=== PATIENT | female | born 1945 | race Caucasian/White ===

== ENCOUNTER 2018-03-27 17:59 | Inpatient (IN) | payer OTHER ==
[~2018-03-27] VITALS: Ht 152.4 cm; Wt 52.6 kg
[~2018-03-27 17:59] MED LIST: ACET-8386 PO; ASPI81CT89 PO; COL250 PO; COZ50 PO; IBUP-2213 PO; [UNRECOGNIZED DRUG - CODE] PO; [UNRECOGNIZED DRUG - CODE] PO; [UNRECOGNIZED DRUG - CODE] PO
[2018-03-27 18:05] VITALS: BP 149/90
--- NOTE | 2018-03-27 18:05 | NUR ---
PT AMBULATES TO BED 4
--- NOTE | 2018-03-27 18:32 | NUR ---
73 YO F BIB FAMILY WITH C/O H/A, TINGLING ON THE FACE, FEELING HOT ON BL FEET AT NIGHT. DENIES INJURY. DENIES N/V/D/FEVER/CHILLS AT THIS TIME. AAOX4. GSC 15. CMS INTACT. RR EVEN AND UNLABORED. LUNGS BILATERALLY CLEAR. ABD SOFT, NON-TENDER. ER MD BARRETO NOTIFIED. PT NEEDS MET. SAFETY PRECAUTIONS IN PLACE. WILL CONTINUE TO MONITOR.
--- NOTE | 2018-03-27 19:00 | NUR ---
CRITICAL CT SCAN RECEIVED FROM [facility] WITH RADIOLOGY AT THIS TIME. ER MD BARRETO NOTIFIED AND WILL SEE PT.
[2018-03-27] MEDS ORDERED: ASPIRIN 81 MG TAB.CHEW PO ONE (19:10)
[2018-03-27 19:23] LABS: BASOPHILS # (AUTO) 0.1 K/uL (0.00-0.22); BASOPHILS % (AUTO) 0.8 % (0.0-2.0); EOSINOPHILS % (AUTO) 0.4 % (0.0-4.0); HEMATOCRIT 34.2 % (36-48); HEMOGLOBIN 11.4 g/dL (12.0-16.0); LYMPHOCYTES % (AUTO) 16.5 % (20.5-51.1); MEAN CORPUSCULAR HEMOGLOBIN 29 pg (27-31); MEAN CORPUSCULAR HGB CONC 33 g/dL (33-37); MEAN CORPUSCULAR VOLUME 86.6 fL (80-94); MONOCYTES # (AUTO) 0.6 K/uL (0.8-1.0); NEUTROPHILS # (AUTO) 4.6 K/uL (1.8-7.7); NEUTROPHILS % (AUTO) 73.3 % (42.2-75.2); PLATELET COUNT (AUTO) 220 K/uL (140-450); RED BLOOD CELL COUNT(AUTO) 3.95 MIL/uL (4.20-5.40); RED CELL DISTRIBUTION WIDTH 14.9 % (11.6-13.7); WHITE BLOOD COUNT (AUTO) 6.2 K/uL (4.8-10.8)
[2018-03-27 19:39] LABS: ANION GAP 13.4 (8-16); CARBON DIOXIDE 24.4 mmol/L (21-32); CHLORIDE 109 mmol/L (98-107); CREATININE 1.2 mg/dL (0.6-1.3); GLUCOSE 110 mg/dL (74-106); POTASSIUM 3.8 mmol/L (3.5-5.1); SODIUM SERUM 143 mmol/L (136-145); UREA NITROGEN, BLOOD 35 mg/dL (7-18)
[2018-03-27 19:41] LABS: PROTHROMBIN TIME 9.9 secs (10.8-13.4)
[2018-03-27 19:45] LABS: ALBUMIN 3.1 g/dL (3.4-5.0); ASPARTATE AMINOTRANSFERASE 17 U/L (15-37); TOTAL BILIRUBIN 0.2 mg/dL (0.0-1.0)
--- NOTE | 2018-03-27 19:55 | NUR ---
pt resting comfortably in bed at this time. vss. will continue to monitor.
[2018-03-27] MEDS ORDERED: MORPHINE SULFATE 2 MG/ML SYR IVP PRN (20:20)
[2018-03-27 20:50] VITALS: BP 150/70
--- NOTE | 2018-03-27 20:50 | NUR ---
PATIENT ADMITTED TO THE UNIT FROM ER. PATIENT IS AWAKE, ALERT AND ORIENTED. KINYARWANDA-SPEAKING. AMBULATES WITH WALKER. NO SIGNS AND SYMPTOMS OF DISTRESS NOTED. NO C/O PAIN AT THIS TIME. IV SITE NOTED ON RIGHT FOREARM, SALINE LOCKED. PATIENTS SONS ARE AT BEDSIDE. PLAN OF CARE DISCUSSED WITH PATIENT, AND FAMILY. PATIENT VERBALIZED UNDERSTANDING. SAFETY PRECAUTIONS IN PLACE. WILL CONTINUE TO MONITOR
--- NOTE | 2018-03-27 20:58 | NUR ---
Patient will be admitted to care of DAMIEN Hayes. Admited to Tele. Will go to room 123A. Belongings list completed. Pt tolerated transition well.
[2018-03-27] MEDS ORDERED: CALCIUM LACTATE 650 MG PO SCH (21:00)
[2018-03-27] MEDS ORDERED: DOCUSATE SODIUM 250 MG GELCAP PO SCH (21:00)
--- NOTE | 2018-03-27 21:00 | NUR ---
PATIENT'S SON JIL WAS ABLE TO TRANSLATE TO PATIENT IN [place]. PATIENT HAS RED WALKER, WITH BELONGINGS INSIDE WALKER. PATIENT ALSO HAS UPPER AND LOWER DENTURES
--- NOTE | 2018-03-27 22:00 | NUR ---
ASSISTED PATIENT TO THE RESTROOM WITH WALKER. PATIENT STEADY. PATIENT VOIDED IN RESTROOM. ASSISTED PATIENT BACK TO BED. NO S/SX DISTRESS NOTED. NO SOB. WILL CONTINUE TO MONITOR
[2018-03-28] VITALS: BP 146/69
--- NOTE | 2018-03-28 01:30 | NUR ---
CHECKED ON PATIENT. PATIENT IS ASLEEP. NO SIGNS AND SYMPTOMS OF DISTRESS NOTED. BREATHING EVEN AND UNLABORED, WILL CONTINUE TO MONITOR
--- NOTE | 2018-03-28 03:34 | NUR ---
CHECKED ON PATIENT. PATIENT IS ASLEEP. NO SIGNS AND SYMPTOMS OF DISTRESS NOTED. BREATHING EVEN AND UNLABORED. WILL CONTINUE TO MONITOR
[2018-03-28 04:00] VITALS: BP 158/67
--- NOTE | 2018-03-28 06:00 | NUR ---
CHECKED ON PATIENT. PATIENT IS ASLEEP. NO SIGNS AND SYMPTOMS OF DISTRESS NOTED. BREATHING EVEN AND UNLABORED. WILL CONTINUE TO MONITOR.
[2018-03-28 06:24] LABS: EOSINOPHILS # (AUTO) 0.1 K/uL (0-0.4); EOSINOPHILS % (AUTO) 1.9 % (0.0-4.0); HEMATOCRIT 33.7 % (36-48); HEMOGLOBIN 11.3 g/dL (12.0-16.0); LYMPHOCYTES # (AUTO) 1.3 K/uL (2.5-16.5); LYMPHOCYTES % (AUTO) 24.9 % (20.5-51.1); MEAN CORPUSCULAR HEMOGLOBIN 29 pg (27-31); MEAN CORPUSCULAR HGB CONC 34 g/dL (33-37); MEAN CORPUSCULAR VOLUME 86.7 fL (80-94); MONOCYTES # (AUTO) 0.5 K/uL (0.8-1.0); MONOCYTES % (AUTO) 8.9 % (1.7-9.3); NEUTROPHILS # (AUTO) 3.2 K/uL (1.8-7.7); NEUTROPHILS % (AUTO) 63.3 % (42.2-75.2); PLATELET COUNT (AUTO) 210 K/uL (140-450); RED BLOOD CELL COUNT(AUTO) 3.89 MIL/uL (4.20-5.40); RED CELL DISTRIBUTION WIDTH 15.1 % (11.6-13.7); WHITE BLOOD COUNT (AUTO) 5.1 K/uL (4.8-10.8)
--- NOTE | 2018-03-28 07:05 | NUR ---
PATIENT REPORT GIVEN TO MORNING NURSE AT BEDSIDE FOR CONTINUITY OF CARE. PATIENT IS IN STABLE CONDITION.
--- NOTE | 2018-03-28 07:08 | NUR ---
RECEIVED REPORT FROM PACK PULLER RN. PATIENT IS SLEEPING IN BED, AROUSABLE BY VOICE. PATIENT DENIES HEADACHE AND TINGLING AT THIS TIME. IV SITE ON RIGHT FOREARM, PATENT AND ASYMPTOMATIC. LUNGS CTA IN ALL HIGH. HEART RHYTHM REGULAR, S1 AND S2 NOTED. ABDOMEN SOFT AND NON-DISTENDED. HEALED ABRASION NOTED ON LEFT ARM. ALL SAFETY MEASURES IN PLACE, CALL LIGHT WITHIN REACH. WILL CONTINUE TO MONITOR.
[2018-03-28 08:00] VITALS: BP 155/78
--- NOTE | 2018-03-28 08:38 | NUR ---
PATIENT HAS BEEN SCREENED AND CATEGORIZED MODERATE NUTRITION RISK. PATIENT WILL BE SEEN WITHIN 3-5 DAYS OF ADMISSION. 03/30/18 04/01/[address]
[2018-03-28] MEDS ORDERED: CALCIUM CARBONATE 500 MG TAB PO SCH (09:00)
[2018-03-28] MEDS ORDERED: SIMVASTATIN 20 MG TAB PO SCH (09:00)
[2018-03-28] MEDS ORDERED: ATORVASTATIN 20 MG TAB PO SCH (09:00)
[2018-03-28] MEDS ORDERED: LOSARTAN 50 MG TAB PO SCH (09:00)
[2018-03-28] MEDS ORDERED: ASPIRIN 81 MG TAB.CHEW PO SCH (09:00)
[2018-03-28] MEDS ORDERED: ENOXAPARIN 30 MG/0.3 ML SYR SUBQ SCH (09:00)
[2018-03-28] MEDS: ACETAMINOPHEN 325 MG TAB PO PRN ×2 (09:23→14:32)
[2018-03-28 09:26] LABS: ALBUMIN 2.9 g/dL (3.4-5.0); ANION GAP 17.6 (8-16); ASPARTATE AMINOTRANSFERASE 22 U/L (15-37); CARBON DIOXIDE 24.1 mmol/L (21-32); CHLORIDE 110 mmol/L (98-107); CREATININE 0.8 mg/dL (0.6-1.3); GLUCOSE 82 mg/dL (74-106); POTASSIUM 3.7 mmol/L (3.5-5.1); SODIUM SERUM 148 mmol/L (136-145); TOTAL BILIRUBIN 0.3 mg/dL (0.0-1.0); UREA NITROGEN, BLOOD 26 mg/dL (7-18)
--- NOTE | 2018-03-28 09:45 | NUR ---
PATIENT SITTING IN BED WITH FAMILY MEMBERS AT BEDSIDE. NO DISTRESS NOTED. DENIES ANY PAIN. SCHEDULED MEDICATIONS DUE GIVEN. SAFETY MEASURES IN PLACE, CALL LIGHT WITHIN REACH. WILL CONTINUE TO MONITOR.
[2018-03-28] MEDS ORDERED: DOCUSATE SODIUM 100 MG GELCAP PO SCH ×2 (10:00→21:00)
[2018-03-28 12:00] VITALS: BP 127/76
--- NOTE | 2018-03-28 12:30 | NUR ---
PATIENT SITTING IN BED TALKING WITH FAMILY MEMBERS AT BEDSIDE. NO DISTRESS NOTED. CONDITION UNCHANGED. WILL CONTINUE TO MONITOR.
--- NOTE | 2018-03-28 13:00 | NUR ---
DR. BOWMAN AT BEDSIDE REVIEWING PLAN OF CARE WITH PATIENT. WILL CONTINUE TO MONITOR.
[2018-03-28] MEDS ORDERED: traMADol 50 MG TAB PO PRN ×2 (13:05→14:25)
[2018-03-28] MEDS ORDERED: IBUPROFEN 600 MG TAB PO PRN (13:05)
[2018-03-28] MEDS ORDERED: HYDROcodone/APAP 5/325 MG 1 TAB TAB PO PRN (13:05)
--- NOTE | 2018-03-28 14:00 | NUR ---
DR. BOWMAN CLEARED PATIENT TO BE DISCHARGED HOME TODAY. DR. BOWMAN BELIEVES THE PATIENT HAD A TIA DUE TO HIGH BP AND THAT WAS CAUSING THE HEADACHE. DR. HOOKER NOTIFIED VIA PHONE AND SAID PATIENT IS OK TO GO HOME WITH ALL HOME MEDS CONTINUATION. WILL PREPARE DISCHARGE PAPERWORK.
--- NOTE | 2018-03-28 14:40 | NUR ---
PATIENT IS DRESSED WITH FAMILY MEMBER AT BEDSIDE. PATIENT IS KYRGYZ SPEAKING AND AN INSPECTION MANAGER SERVICES WERE OFFERED, BUT PATIENT PREFERS THAT FAMILY MEMBER AT BEDSIDE TRANSLATE. DISCUSSED DISCHARGE PLAN, INCLUDING INSTRUCTIONS TO FOLLOW UP WITH PRIMARY CARE PROVIDER AND NEUROLOGIST WITHIN ONE WEEK. PATIENT WAS INSTRUCTED TO RESUME ALL HOME MEDICATIONS. ID BANDS REMOVED. IV CANNULA REMOVED WITH MINIMAL BLOOD LOSS AND LUMEN COMPLETELY INTACT. ALL PERSONAL BELONGINGS ARE WITH PATIENT. PATIENT IS IN STABLE CONDITION AND WILL GO HOME WITH FAMILY VIA PRIVATE VEHICLE.
--- NOTE | 2018-03-28 14:52 | NUR ---
[facility] at [phone]
[2018-03-29] MEDS ORDERED: ASPIRIN 81 MG TAB.CHEW PO SCH (09:00)
== END 2018-03-28 14:40 | disposition home or self-care (01) | DRG 65 ==
LOC: MED 17:59 → MTU 20:22
PROVIDERS: ADMIT Hospitalist; ATTEND Hospitalist
DX: I63.9 Cerebral infarction, unspecified (principal); E44.1 Mild protein-calorie malnutrition; I10 Essential (primary) hypertension; E78.5 Hyperlipidemia, unspecified; E78.00 Pure hypercholesterolemia, unspecified; M19.90 Unspecified osteoarthritis, unspecified site; E86.0 Dehydration; Z68.22 Body mass index [BMI] 22.0-22.9, adult
CPT/HCPCS: 36415; 70450; 71045; 80053; 84484; 85025; 85610; 85730; 87081; 93005; 99285; J1650; Q0092

== ENCOUNTER 2018-03-29 15:17 | Emergency (ER) | payer OTHER ==
[~2018-03-29] VITALS: Ht 152.4 cm; Wt 52.6 kg
[2018-03-29 15:21] VITALS: BP 126/76
--- NOTE | 2018-03-29 15:25 | NUR ---
PT AMBULATED TO BED 9
--- NOTE | 2018-03-29 15:30 | NUR ---
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 VSS; PATIENT POSITIONED FOR COMFORT; HOB ELEVATED; BEDRAILS UP X1; BED DOWN. ER MD MADE AWARE OF PT STATUS.
--- NOTE | 2018-03-29 16:52 | NUR ---
PT NOT ABLE TO GIVE URINE
[2018-03-29 17:18] LABS: BASOPHILS % (AUTO) 0.6 % (0.0-2.0); EOSINOPHILS % (AUTO) 0.2 % (0.0-4.0); HEMATOCRIT 34.9 % (36-48); HEMOGLOBIN 11.4 g/dL (12.0-16.0); LYMPHOCYTES # (AUTO) 0.8 K/uL (2.5-16.5); LYMPHOCYTES % (AUTO) 11.4 % (20.5-51.1); MEAN CORPUSCULAR HEMOGLOBIN 29 pg (27-31); MEAN CORPUSCULAR HGB CONC 33 g/dL (33-37); MEAN CORPUSCULAR VOLUME 87.2 fL (80-94); MONOCYTES # (AUTO) 0.4 K/uL (0.8-1.0); MONOCYTES % (AUTO) 6.6 % (1.7-9.3); NEUTROPHILS # (AUTO) 5.4 K/uL (1.8-7.7); NEUTROPHILS % (AUTO) 81.2 % (42.2-75.2); PLATELET COUNT (AUTO) 229 K/uL (140-450); WHITE BLOOD COUNT (AUTO) 6.6 K/uL (4.8-10.8)
[2018-03-29 17:46] LABS: PROTHROMBIN TIME 9.9 secs (10.8-13.4)
[2018-03-29 17:50] LABS: ANION GAP 15.8 (8-16); CARBON DIOXIDE 22.4 mmol/L (21-32); CHLORIDE 107 mmol/L (98-107); CREATININE 0.9 mg/dL (0.6-1.3); GLUCOSE 113 mg/dL (74-106); POTASSIUM 4.2 mmol/L (3.5-5.1); SODIUM SERUM 141 mmol/L (136-145); UREA NITROGEN, BLOOD 27 mg/dL (7-18)
[2018-03-29 17:56] LABS: ALBUMIN 3.2 g/dL (3.4-5.0); ASPARTATE AMINOTRANSFERASE 24 U/L (15-37); TOTAL BILIRUBIN 0.2 mg/dL (0.0-1.0)
[2018-03-29 18:22] VITALS: BP 124/75
--- NOTE | 2018-03-29 18:22 | NUR ---
Patient discharged with v/s stable. Written and verbal after care instructions given and explained. Patient verbalized understanding. Wheel Chair Assisted with to home. All questions addressed prior to discharge. Advised to follow up with PMD.
== END 2018-03-29 18:22 | disposition home or self-care (01) ==
LOC: MED 15:17
DX: R20.0 Anesthesia of skin (principal); R51 Headache; R53.1 Weakness; R94.31 Abnormal electrocardiogram [ECG] [EKG]; I10 Essential (primary) hypertension; E78.00 Pure hypercholesterolemia, unspecified; Z96.659 Presence of unspecified artificial knee joint; Z79.899 Other long term (current) drug therapy; Z79.82 Long term (current) use of aspirin
CPT/HCPCS: 36415; 71045; 80053; 83880; 84484; 85025; 85610; 85730; 93005; 99285

== ENCOUNTER 2019-04-16 17:29 | Emergency (ER) | payer OTHER, MEDICAID ==
[~2019-04-16] VITALS: Ht 152.4 cm; Wt 52.8 kg
[~2019-04-16 17:29] MED LIST changes: +ASPI-1718 PO; -ASPI81CT89 PO
[2019-04-16 17:52] VITALS: BP 141/77
--- NOTE | 2019-04-16 18:02 | NUR ---
Patient ambulated to bed 3 with family. RN evaluating patient at bedside.
--- NOTE | 2019-04-16 18:10 | NUR ---
PT C/O LT EAR PAIN X1 DAY. SON REPORTS PT HAS RECURRENT EAR INFECTIONS IN LT EAR. INTERMITENT PAIN AT 8/10. DENIES N/V/D; SKIN IS PINK/WARM/DRY; AAOX4 WITH EVEN AND STEADY GAIT; PT DENIES ANY FEVER, CP, SOB, OR COUGH AT THIS TIME; VSS; PATIENT POSITIONED FOR COMFORT; HOB ELEVATED; BEDRAILS UP X1; BED DOWN. ER MD MADE AWARE OF PT STATUS.
[2019-04-16] MEDS ORDERED: ACETAMINOPHEN EXTRA STRENGTH 500 MG TAB PO ONE (18:35)
--- NOTE | 2019-04-16 19:22 | NUR ---
REPORT GIVEN AND CARE TRANSFERED TO DAMIEN QUICK.
--- NOTE | 2019-04-16 19:55 | NUR ---
Patient discharged with v/s stable. Patient states she feels better pain has decreased to 3/10 and she is ready to go home. Written and verbal after care instructions given and explained. Patient alert, oriented and verbalized understanding of instructions. Ambulatory with steady gait using walker by son. All questions addressed prior to discharge. ID band removed. Patient advised to follow up with PMD. Rx of Ciprodex, and Acetaminophen given. Patient educated on indication of medication including possible reaction and side effects. Opportunity to ask questions provided and answered.
[2019-04-16 19:56] VITALS: BP 160/89
== END 2019-04-16 19:55 | disposition home or self-care (01) ==
LOC: MED 17:29
DX: H60.502 Unspecified acute noninfective otitis externa, left ear (principal); I10 Essential (primary) hypertension; Z79.82 Long term (current) use of aspirin; Z79.899 Other long term (current) drug therapy
CPT/HCPCS: 99283

== ENCOUNTER 2019-11-26 20:59 | Inpatient (IN) | payer OTHER, MEDICAID ==
[~2019-11-26] VITALS: Ht 152.4 cm; Wt 59.0 kg
[~2019-11-26 20:59] MED LIST changes: -ASPI-1718 PO; +ASPI-1822 PO; -COZ50 PO; +LOSA50TA57 PO
[2019-11-26 21:00] VITALS: BP 177/100
--- NOTE | 2019-11-26 21:10 | NUR ---
TO BED # 10 VIA WHEELCHAIR
--- NOTE | 2019-11-26 21:15 | NUR ---
CRAIGD MADE AWARE OF PT STATUS
--- NOTE | 2019-11-26 21:15 | NUR ---
74 YEAR OLD MALE COMPLAINS OF CHEST PAIN X 9 HOURS. PAIN 8/10 SHARP THAT RADIATES FROM CHEST TO LEFT ARM. PATIENT DENIES SHORTNESS OF BREATHE, NAUSEA, AND VOMITTING. PATIENT AOX4, BREATHING EVEN AND UNLABORED, LUNGS CTABL, SKIN WARM AND DRY. BED IN LOWEST POSITION, LOCKED, BED RAIL UPX1. PMH - HTN, HYPERLIPIDEMIA, STROKE 1 YEAR AGO, TUMOR REMOVAL IN STOMACH ALLERGIES - PCN
--- NOTE | 2019-11-26 21:24 | NUR ---
CRAIGD MADE AWARE OF PT STATUS
--- NOTE | 2019-11-26 21:24 | NUR ---
Chacho mcqueen in [facility] - 11/26/19 at 2205 by MEDAlejandraJ FRANKO MADE AWARE OF PT STATUS
[2019-11-26] MEDS ORDERED: ASPIRIN 325 MG TAB PO ONE (22:00)
[2019-11-26] MEDS ORDERED: NITROGLYCERIN 2% 1 GM PKT TP ONE (22:00)
--- NOTE | 2019-11-26 22:30 | NUR ---
PATIENT AOX4, BREATHING EVEN AND UNLABORED
[2019-11-26 22:59] LABS: ALBUMIN 3.2 g/dL (3.4-5.0); ANION GAP 10.2 (8-16); ASPARTATE AMINOTRANSFERASE 18 U/L (15-37); CARBON DIOXIDE 28.7 mmol/L (21-32); CHLORIDE 106 mmol/L (98-107); GLUCOSE 92 mg/dL (74-106); POTASSIUM 3.9 mmol/L (3.5-5.1); SODIUM SERUM 141 mmol/L (136-145); UREA NITROGEN, BLOOD 36 mg/dL (7-18)
[2019-11-26 23:15] LABS: TOTAL BILIRUBIN 0.1 mg/dL (0.0-1.0)
[2019-11-26] MEDS ORDERED: MORPHINE SULFATE 4 MG/ML SYR IVP ONE (23:20)
--- NOTE | 2019-11-26 23:20 | NUR ---
Chacho mcqueen in [facility] - 11/26/19 at 2320 by MEDJJ PT STILL HAS 710 PAIN, BP REDONE AND IS 144/78
--- NOTE | 2019-11-26 23:20 | NUR ---
PT STILL HAS 7/10 PAIN, BP REDONE AND IS 144/78. ERMD MADE AWARE OF UPDATE
[2019-11-26 23:25] LABS: CREATINE KINASE MB 1.4 ng/mL (0-3.6)
--- NOTE | 2019-11-26 23:30 | NUR ---
PATIENT AOX4, BREATHING EVEN AND UNLABORED
[2019-11-26 23:32] LABS: CHOL/HDL RATIO 2.5 (1-4.5)
[2019-11-26 23:47] LABS: BASOPHILS # (AUTO) 0.2 K/uL (0.00-0.22); BASOPHILS % (AUTO) 2.7 % (0.0-2.0); EOSINOPHILS # (AUTO) 0.1 K/uL (0-0.4); EOSINOPHILS % (AUTO) 0.8 % (0.0-4.0); HEMATOCRIT 32.8 % (36-48); HEMOGLOBIN 10.8 g/dL (12.0-16.0); LYMPHOCYTES % (AUTO) 16.9 % (20.5-51.1); MEAN CORPUSCULAR HEMOGLOBIN 29 pg (27-31); MEAN CORPUSCULAR HGB CONC 33 g/dL (33-37); MEAN CORPUSCULAR VOLUME 88.2 fL (80-94); MONOCYTES # (AUTO) 0.6 K/uL (0.8-1.0); MONOCYTES % (AUTO) 9.4 % (1.7-9.3); NEUTROPHILS # (AUTO) 4.3 K/uL (1.8-7.7); NEUTROPHILS % (AUTO) 70.2 % (42.2-75.2); PLATELET COUNT (AUTO) 226 K/uL (140-450); RED BLOOD CELL COUNT(AUTO) 3.71 MIL/uL (4.20-5.40); WHITE BLOOD COUNT (AUTO) 6.1 K/uL (4.8-10.8)
--- NOTE | 2019-11-27 00:10 | NUR ---
PATIENT AOX4, BREATHING EVEN AND UNLABORED
--- NOTE | 2019-11-27 00:21 | NUR ---
PT SON STATED HE DOES NOT KNOW THE MEDICATION INFORMATION AND WILL BRING THE MEDICATION WHEN HE CAN. CRAIGD MADE AWARE.
--- NOTE | 2019-11-27 00:22 | NUR ---
REPORT GIVEN TO DEVEN QUEZADA, ON BREAK AT THIS TIME
[2019-11-27] MEDS ORDERED: MORPHINE SULFATE 2 MG/ML SYR IVP PRN ×3 (00:25→12:00)
[2019-11-27] MEDS ORDERED: ONDANSETRON 4 MG/2 ML VIAL IVP PRN ×2 (00:25→00:30)
[2019-11-27] MEDS ORDERED: HYDROcodone/APAP 5/325 MG 1 TAB TAB PO PRN ×4 (00:25→12:00)
[2019-11-27] MEDS ORDERED: LORazepam 2 MG/ML VIAL IVP PRN ×2 (00:25→00:30)
[2019-11-27] MEDS ORDERED: POTASSIUM CHLORIDE 10 MEQ TABER PO PRN (00:30)
[2019-11-27] MEDS ORDERED: IPRATROPIUM 0.02% 0.5 MG/2.5 ML NEBU INH PRN (00:30)
[2019-11-27] MEDS ORDERED: DEXTROSE 50% 50 ML SYR IVP PRN (00:30)
[2019-11-27] MEDS ORDERED: ACETAMINOPHEN 650 MG SUPP RC PRN (00:30)
[2019-11-27] MEDS ORDERED: DOCUSATE SODIUM 250 MG GELCAP PO PRN (00:30)
[2019-11-27] MEDS ORDERED: INSULIN LISPRO SLIDING SCALE 100 UNITS/ML VIAL SUBQ PRN (00:30)
[2019-11-27] MEDS ORDERED: ALUMINUM HYD/MAG/SIMETHICONE 30 ML UDC PO PRN (00:30)
[2019-11-27] MEDS ORDERED: ALBUTEROL 0.083% 2.5 MG/3 ML NEBU INH PRN (00:30)
[2019-11-27] MEDS ORDERED: diphenhydrAMINE 50 MG/ML VIAL IVP PRN (00:30)
[2019-11-27] MEDS ORDERED: MAG SULF 2000 MG/WATER PREMIX 50 ML IV PRN (00:30)
[2019-11-27] MEDS ORDERED: ZOLPIDEM 5 MG TAB PO PRN (00:30)
[2019-11-27] MEDS ORDERED: guaiFENesin DM 200/20 MG-10 ML 10 ML UDC PO PRN (00:30)
[2019-11-27] MEDS ORDERED: cloNIDine 0.1 MG TAB PO PRN (00:30)
[2019-11-27] MEDS ORDERED: BISACODYL 10 MG SUPP RC PRN (00:30)
[2019-11-27] MEDS ORDERED: MAGNESIUM OXIDE 400 MG TAB PO PRN (00:30)
[2019-11-27] MEDS ORDERED: ACETAMINOPHEN 325 MG TAB PO PRN (00:30)
--- NOTE | 2019-11-27 00:52 | NUR ---
BACK FROM BREAK, REPORT RECEIVED FROM DEVEN QUEZADA
--- NOTE | 2019-11-27 01:10 | NUR ---
Patient will be admitted to care of DR SALAZAR. Admited to TELE. Will go to room 119A. Belongings list completed. Report to NOHEMY QUEZADA.
--- NOTE | 2019-11-27 01:15 | NUR ---
RECEIVED REPORT FROM ER NURSE. PATIENT IS AWAKE, ALERT, AND COOPERATIVE. ADMITTING DIAGNOSIS ACS AND UNCONTROLLED HTN. RESPIRATION EVEN UNLABORED ON ROOM AIR. DENIES CHEST PAIN. SKIN IS WARM AND DRY. NITRO PATCH NOTED. IV PATENT AND INTACT. HEART RATE REGULAR. S1&S2 NOTED. LUNGS SOUNDS CLEAR ON AUSCULTATION. BOWEL SOUNDS PRESENT IN ALL QUADRANTS ABDOMEN SOFT AND NON-TENDER. LAST BM 11/26/19. MRSA SCREEN DONE. VITALS WERE TAKEN. PATIENT BP 175/93 HR 69. WILL NOTIFY MD FOR ORDERS. ORIENT PATIENT TO THE ROOM, STAFF, AND CALL LIGHT. ALL SAFETY MEASURES IN PLACE. BED IS AT LOW POSITION. CALL LIGHT WITHIN REACH AND VERBALIZES ITS USE. WILL CONTINUE TO MONITOR.
[2019-11-27 01:34] VITALS: BP 175/93
--- NOTE | 2019-11-27 02:11 | NUR ---
PATIENT BP 175/95 HR 69 ADMINISTERED PRN BP MEDS PER ORDER. PATIENT DENIES PAIN. WILL CONTINUE TO MONITOR.
--- NOTE | 2019-11-27 03:41 | NUR ---
REASSESSMENT OF BP MED PATIENT BP 113/66 HR 70. IN STABLE CONDITION. DENIES PAIN. WILL CONTINUE TO MONITOR.
[2019-11-27 04:00] VITALS: BP 113/66
--- NOTE | 2019-11-27 04:53 | NUR ---
CHECKED PATIENT. PATIENT SLEEPING RESPIRATION EVEN UNLABORED ON ROOM AIR. NO DISTRESS NOTED. WILL CONTINUE TO MONITOR.
--- NOTE | 2019-11-27 06:11 | NUR ---
PATIENT COMPLAINED OF LEFT BREAST PAIN 9/. ASSESS AND PALPATE LEFT CHEST BREAST ITS TENDER TO TOUCH. PRN PAIN MED ADMINISTER PER ORDER. WILL CONTINUE TO MONITOR.
[2019-11-27] MEDS: BLOOD GLUCOSE MONITORING 1 DEV DEV FS SCH ×4 (06:31→20:16)
--- NOTE | 2019-11-27 07:16 | NUR ---
ENDORSED PATIENT TO DAY SHIFT NURSE. PATIENT IS IN STABLE CONDITION.
--- NOTE | 2019-11-27 07:20 | NUR ---
RECEIVED PT FROM [facility], PT IS AWQAKE AND LYING ON THE BED WITH SIDE RAISL UP AND CALL LIGHT WITHIN REACHJ, IV LINE ON THE LEFT AC 22G ON SALINE LOCK. NITRO PATCH IN PLACE IN MID SUBSTERNAL. ON ROOM AIR. NO SIGNS OF DISTRESS NOTED. WILL CONTINUE TO MONITOR.
[2019-11-27 08:00] VITALS: BP 143/77
--- NOTE | 2019-11-27 08:32 | NUR ---
PATIENT HAS BEEN SCREENED AND CATEGORIZED MODERATE NUTRITION RISK. PATIENT WILL BE SEEN WITHIN 3-5 DAYS OF ADMISSION. 11/29/19 12/01/[address]
--- NOTE | 2019-11-27 09:13 | NUR ---
DR. LESLIE MATA CAME TO THE PT'S ROOM AND ASSESSED AND SPOKE TO PT, PT RESPONDING APPROPRIATELY.
[2019-11-27] MEDS: ENOXAPARIN 30 MG/0.3 ML SYR SUBQ SCH (09:28)
--- NOTE | 2019-11-27 09:28 | NUR ---
PT. WAS GIVEN SCHEDULED MEDICATIONS. PARAMETERS CHECKED. PT. COMPLAINS OF HEADACHE. GIVEN TYLENOL PO. WILL REASSESS AND MONITOR PT.
[2019-11-27] MEDS: ACETAMINOPHEN 325 MG TAB PO PRN ×2 (09:29→18:38)
--- NOTE | 2019-11-27 11:57 | NUR ---
PT'S BLOOD GLUCOSE WAS CHECKED AND RESULT IS 78 AND NO INSULIN COVERAGE NEEDED, V/S TAKEN AND IS STABLE, WILL MONITOR P.T
[2019-11-27 12:00] VITALS: BP 110/68
--- NOTE | 2019-11-27 14:45 | NUR ---
INSERTED KIMBLE CATHETER NOW. PT. TOLERATED WELL. NO SIGNS OF DISTRESS AND DENIES PAIN. WILL CONTINUE TO MONITOR.
--- NOTE | 2019-11-27 14:57 | NUR ---
DC PLANNIN YRS OLD FEMALE PATIENT WAS ADMITTED FROM HOME WITH A DX OF ACS, UNCONTROLLED HTN AND DM. PT HAS A HX OF HTN ,DM, PVD TIA AND RHEUMATOID ARTHRITIS. C XRAY NORMAL. ADMINISTERED BP MEDS CLONIDINE 0.1MG FOR HIGH BP, CARDIOLOGY CONSULT WITH DR ESPERANZA Mccracken. DC PLAN TO GO HOME WHEN STABLE. CM TO FOLLOW. Addendum: 11/28/19 at 1320 by Miroslava Stuart CM DC PLANNING: SEEN BY BILLING SPECIALIST BP STABLE DC HOME AND FOLLOW UP WITH PCP WITH IN 7 DAYS.
--- NOTE | 2019-11-27 15:00 | NUR ---
ECHOCARDIOGRAM IS BEING DONE TO PT NOW.
[2019-11-27 16:00] VITALS: BP 107/64
--- NOTE | 2019-11-27 18:38 | NUR ---
PT. COMPLAINS OF HEADACHE PAIN WITH SCALE OF 6/10. TYLENOL PO GIVEN. PT. TOLERATED WELL AND IS STABLE. WILL CONTINUE TO MONITOR.
--- NOTE | 2019-11-27 19:20 | NUR ---
ENDORSED PT. TO BROOMCORN PRESS FEEDER NURSE FOR CONTINUITY OF CARE. PT. STABLE.
--- NOTE | 2019-11-27 19:21 | NUR ---
REPORT RECEIVED FROM AM NURSE AT BEDSIDE. PT IN STABLE CONDITION. AAOX4. INTRODUCED SELF TO PT. BOARD UPDATED. NO COMPLAINTS OF PAIN. NO SOB. AFEBRILE. PT IS AMBULATORY WITH ASSIST. BEDSIDE COMMODE BUT HAS A KIMBLE IN PLACE. IV SITE R AC 22G SL PATENT AND INTACT. SKIN WARM, DRY, AND INTACT WITH NO OPEN WOUNDS. BED LOCKED IN LOW POSITION. CALL VICTORIA WITHIN REACH. SAFETY PRECAUTION IN PLACE. ALL NEEDS MET AT THIS TIME.
[2019-11-27 20:00] VITALS: BP 104/61
--- NOTE | 2019-11-27 20:16 | NUR ---
BS 96. NO INSULIN COVERAGE NEEDED.
--- NOTE | 2019-11-27 22:10 | NUR ---
PT SLEEPING COMFORTABLY BUT AROUSABLE. NO S/S OF DISTRESS NOTED. WILL CONTINUE TO MONITOR.
--- NOTE | 2019-11-27 23:55 | NUR ---
PT SLEEPING COMFORTABLY BUT AROUSABLE. VS STABLE. PT WENT BACK TO SLEEP AFTER VS. WILL CONTINUE TO MONITOR.
[2019-11-28] VITALS: BP 126/72
--- NOTE | 2019-11-28 02:15 | NUR ---
PT SLEEPING COMFORTABLY BUT AROUSABLE. NO S/S OF DISTRESS NOTED. NO COMPLAINTS OF PAIN. NO SOB. AFEBRILE. WILL CONTINUE TO MONITOR.
[2019-11-28 04:00] VITALS: BP 123/60
[2019-11-28] MEDS: ACETAMINOPHEN 325 MG TAB PO PRN (04:41)
--- NOTE | 2019-11-28 04:41 | NUR ---
TYL GIVEN FOR HEADACHE. PT TOLERATED WELL.
[2019-11-28] MEDS: BLOOD GLUCOSE MONITORING 1 DEV DEV FS SCH ×2 (05:03→11:33)
--- NOTE | 2019-11-28 05:03 | NUR ---
BS 82. NO INSULIN COVERAGE NEEDED.
[2019-11-28 06:18] LABS: ANION GAP 11.5 (8-16); CHLORIDE 107 mmol/L (98-107); CREATININE 0.7 mg/dL (0.6-1.3); GLUCOSE 81 mg/dL (74-106); POTASSIUM 3.5 mmol/L (3.5-5.1); SODIUM SERUM 141 mmol/L (136-145); UREA NITROGEN, BLOOD 30 mg/dL (7-18)
[2019-11-28 06:57] LABS: BASOPHILS % (AUTO) 0.7 % (0.0-2.0); EOSINOPHILS # (AUTO) 0.1 K/uL (0-0.4); EOSINOPHILS % (AUTO) 2.7 % (0.0-4.0); HEMATOCRIT 30.8 % (36-48); HEMOGLOBIN 10.2 g/dL (12.0-16.0); LYMPHOCYTES % (AUTO) 18.1 % (20.5-51.1); MEAN CORPUSCULAR HEMOGLOBIN 30 pg (27-31); MEAN CORPUSCULAR HGB CONC 33 g/dL (33-37); MEAN CORPUSCULAR VOLUME 89.1 fL (80-94); MONOCYTES # (AUTO) 0.5 K/uL (0.8-1.0); MONOCYTES % (AUTO) 8.6 % (1.7-9.3); NEUTROPHILS # (AUTO) 3.8 K/uL (1.8-7.7); NEUTROPHILS % (AUTO) 69.9 % (42.2-75.2); PLATELET COUNT (AUTO) 217 K/uL (140-450); RED BLOOD CELL COUNT(AUTO) 3.46 MIL/uL (4.20-5.40); RED CELL DISTRIBUTION WIDTH 15.6 % (11.6-13.7); WHITE BLOOD COUNT (AUTO) 5.4 K/uL (4.8-10.8)
--- NOTE | 2019-11-28 07:15 | NUR ---
RECEIVED PATIENT FROM JAZZ SINGER NURSE FOR CONTINUITY OF CARE. PATIENT IS AAOX4. LIBYAN SPEAKING ONLY. RESPIRATIONS EVEN AND UNLABORED, ROOM AIR. VISIBLE CHEST RISE NOTED. NITRO IN THE MID CHEST NOTED. ON TELE MONITORING. ABDOMEN SOFT, ROUND, NONTENDER. SKIN WARM, DRY, AND INTACT. IV IN THE RIGHT AC G22, SALINE LOCK. KIMBLE CATHETER IN PLACE. CLEAR YELLOW URINE NOTED. PATIENT IS BEDBOUND. STANDARD ISOLATION. BED IN LOW POSITION. CALL LIGHT IS WITHIN REACH. WILL CONTINUE TO MONITOR.
[2019-11-28 08:00] VITALS: BP 137/88
[2019-11-28] MEDS ORDERED: ASPIRIN 81 MG TAB.CHEW PO SCH (09:00)
[2019-11-28] MEDS ORDERED: METOPROLOL SUCCINATE 50 MG TABER PO SCH (09:00)
[2019-11-28] MEDS ORDERED: ATORVASTATIN 20 MG TAB PO SCH (09:00)
--- NOTE | 2019-11-28 09:03 | NUR ---
GIVEN MORNING MEDICATIONS PO. LOVENOX IN THE ABDOMEN. PLATE IS 217. EXPLAINED TO PATIENT MEDS AND SIDE EFFECTS. PATIENT VERBALIZED UNDERSTANDING. BED IN LOW POSITION. CALL LIGHT IS WITHIN REACH. WILL CONTINUE TO MONITOR
[2019-11-28] MEDS: ENOXAPARIN 30 MG/0.3 ML SYR SUBQ SCH (09:05)
--- NOTE | 2019-11-28 11:05 | NUR ---
GIVEN DISCHARGE INSTRUCTIONS. DISCONTINUED IV. MINIMAL BLEEDING. NO PAIN. REMOVED KIMBLE CATHETER. 500 CC OF CLEAR, YELLOW URINE. 10 CC OF SALINE ASPIRATED FROM THE BALLOON. CATHETER INTACT.
--- NOTE | 2019-11-28 11:20 | NUR ---
PATIENT IS SLEEPING AT THIS TIME. NO SIGNS OF DISTRESS NOTED. BED IN LOW POSITION. CALL LIGHT IS WITHIN REACH. WILL CONTINUE TO MONITOR
--- NOTE | 2019-11-28 11:30 | NUR ---
BLOOD GLUCOSE CHECK: 92. NO INSULIN COVERAGE
[2019-11-28 12:00] VITALS: BP 123/70
--- NOTE | 2019-11-28 12:15 | NUR ---
SON, JIL, WAS GIVEN DISCHARGE INSTRUCTIONS. HE ALSO SIGNED THE DISCHARGE PAPER WORKS.
[2019-11-28 12:23] VITALS: BP 123/70
--- NOTE | 2019-11-28 12:30 | NUR ---
DISCHARGED PATIENT VIA WHEELCHAIR THAT THE PT OWNED. REMOVED ID BAND. JIL, SON, PICKED UP THE PATIENT. PATIENT IS IN STABLE CONDITION. NO CHEST PAIN. NO SOB.
[2019-11-28] MEDS ORDERED: MENTHOL/METHYL 10%-15% 114 GM TUBE TP SCH (13:00)
== END 2019-11-28 13:25 | disposition home or self-care (01) | DRG 313 ==
LOC: MED 20:59 → MTU 11-27 00:41 → OBSVTOIN 11-27 11:59
PROVIDERS: ADMIT Internal Medicine Pulmonary Disease; ATTEND Internal Medicine Pulmonary Disease
DX: R07.89 Other chest pain (principal); M06.9 Rheumatoid arthritis, unspecified; I10 Essential (primary) hypertension; E78.00 Pure hypercholesterolemia, unspecified; Z86.73 Personal history of transient ischemic attack (TIA), and cerebral infarction without residual deficits; E78.5 Hyperlipidemia, unspecified; Z96.652 Presence of left artificial knee joint; I73.9 Peripheral vascular disease, unspecified; G89.4 Chronic pain syndrome
CPT/HCPCS: 96374; 99291; G0378; 36415; 71045; 80048; 80053; 82550; 82553; 82948; 83880; 84484; 85025; 85379; 87081; 93005; J1650; J2270